=== PATIENT | male | born 1945 | race Caucasian/White ===

== ENCOUNTER → 2017-01-22 | Outpatient (CLI) | payer MEDICARE ==
--- NOTE | 2017-01-22 17:39 | US ---
EXAMINATION TYPE: US kidneys/renal and bladder DATE OF EXAM: 01/22/2017 COMPARISON: Previous study dated 11/24/2014. CLINICAL HISTORY: N18.3 CKD Stage 3. CKD stage 3 EXAM MEASUREMENTS: Right Kidney: 9.3 x 4.2 x 4.3 cm Left Kidney: 9.5 x 4.5 x 4.3 cm Right Kidney: multiple cystic areas throughout with largest measuring 2.4 x 1.4 x 2.0cm, 0.3cm echoge gordy focus mid pole, lobulated contour Left Kidney: multiple cystic areas throughout with largest measuring 1.2cm inferior pole, lobulated c ontour Bladder: wnl Bilateral Jets seen: yes There are multiple cysts present in both kidneys. Some of these parapelvic cysts. There is a septated cyst in the mid polar region of the right kidney. This is unchanged from previous. There is a nonsha dowing, 3.2 mm echogenic focus within the renal pelvis. I'm uncertain as to the etiology of this. It may represent a nonshadowing calculus. There is no evidence of hydronephrosis. IMPRESSION: 1. STABLE APPEARING BILATERAL RENAL CYSTS. 2. PROBABLE NONSHADOWING CALCULUS IN THE MID POLAR REGION OF THE RIGHT KIDNEY.
== END ==
LOC: RADUSWWP 15:25
PROVIDERS: ATTEND Family Medicine
DX: N28.1 Cyst of kidney, acquired (principal); N18.3 Chronic kidney disease, stage 3 (moderate)
CPT/HCPCS: 76770

== ENCOUNTER → 2018-01-21 | Outpatient (CLI) | payer MEDICARE | END | disposition home or self-care (01) | LOC: LABWHC1 10:07 | PROVIDERS: ATTEND Family Medicine | DX: R79.89 Other specified abnormal findings of blood chemistry (principal) | CPT/HCPCS: 36415; 84207 ==

== ENCOUNTER → 2019-04-02 | Outpatient (CLI) | payer MEDICARE ==
--- NOTE | 2019-04-02 14:32 | US ---
EXAMINATION TYPE: US kidneys/renal and bladder DATE OF EXAM: 04/02/2019 COMPARISON: Renal ultrasound dated 01/22/2017 CLINICAL HISTORY: N28.1 REECE RENAL CYSTS. Hx renal cysts EXAM MEASUREMENTS: Right Kidney: 9.2 x 4.5 x 4.1 cm Left Kidney: 9.1 x 4.3 x 4.7 cm Right Kidney: Appears lobular. Renal cysts visualized, largest measured = 1.3 x 1.2 x 0.9 cm, this p reviously measured up to 2.4 cm on the prior of 2016 Left Kidney: Appears lobular. Renal cysts visualized, largest measured= 1.4 x 1.1 x 1.0 cm, this pre viously measured up to 1.2 cm on the prior 2016 Bladder: distended, anechoic Bilateral Jets seen There is no evidence for hydronephrosis at this point in time. No nephrolithiasis is seen. No suspi cious masses are identified. The urinary bladder is anechoic. Bilateral ureteral jets are seen. IMPRESSION: Bilateral benign-appearing renal cysts without internal complexity. No significant interv al growth.
== END | disposition home or self-care (01) ==
LOC: RADUSWWP 13:20
PROVIDERS: ATTEND Internal Medicine Nephrology
DX: N28.1 Cyst of kidney, acquired (principal)
CPT/HCPCS: 76770

== ENCOUNTER → 2021-11-16 | Outpatient (CLI) | payer MEDICARE ==
--- NOTE | 2021-11-17 08:42 | US ---
EXAMINATION TYPE: US kidneys/renal and bladder DATE OF EXAM: 11/16/2021 COMPARISON: US 03/2019 CLINICAL HISTORY: N18.32 CKD STAGE 3. CKD STAGE 3 EXAM MEASUREMENTS: Right Kidney: 9.5 x 5.0 x 3.8 cm Left Kidney: 10.3 x 5.1 x 5.0 cm Right Kidney: LOBULAR, MULTIPLE CYSTS SEEN, LARGEST ADITYA. 2.6 x1.9 x 2.7 cm Left Kidney: LOBULAR, MILD RENAL PELVIC PROMINENCE NOTED, MULTIPLE CYSTS SEEN LARGEST ADITYA. 2.0 x 1.6 x 2.2cm Bladder: wnl Bilateral Jets seen: Yes IMPRESSION: Bilateral cysts. Findings similar to comparison
== END | disposition home or self-care (01) ==
LOC: RADUSWWP 16:05
PROVIDERS: ATTEND Internal Medicine Nephrology
DX: N28.1 Cyst of kidney, acquired (principal)
CPT/HCPCS: 76770

== ENCOUNTER 2022-03-15 10:07 | Day surgery (SDC) | payer MEDICARE ==
[~2022-03-15 10:07] MED LIST: LACTATED RINGERS 1,000 ML IV SCH
[2022-03-15] MEDS ORDERED: SODIUM CHLORIDE 0.9% 1,000 ML IV ONE (11:05)
[2022-03-15 11:11] VITALS: TEMP 97.6
[2022-03-15] MEDS ORDERED: PROPOFOL 10 MG/ML 20 ML VIAL IV ONE (11:49)
--- NOTE | 2022-03-15 12:03 | P.PCN ---
Date of Procedure: 03/15/22 Procedure(s) Performed: BRIEF HISTORY: Patient is a 76-year-old pleasant male scheduled for an elective colonoscopy as a part of screening for colorectal neoplasia. PROCEDURE PERFORMED: Colonoscopy biopsy. PREOPERATIVE DIAGNOSIS: Screening for for colon cancer. IV sedation per Anesthesia. PROCEDURE: After informed consent was obtained, the patient, was brought into the endoscopy unit. IV sedation was administered by Anesthesia under continuous monitoring. Digital rectal examination was normal. Initially the Olympus CF-160 flexible video colonoscope was then inserted in the rectum, gradually advanced into the cecum without any difficulty. Careful examination was performed as the scope was gradually being withdrawn. Ileocecal valve and the appendiceal orifice were visualized and appeared normal. Prep was excellent. Mucosa of the cecum had 2 mm polyp that was removed by cold biopsy. Descending colon there was a 5 limited polyp that was removed by cold biopsy. Rest of the, ascending colon, transverse colon, descending colon, sigmoid colon, and rectum appeared normal. Scattered sigmoid diverticulosis seen. Retroflexion was performed in the rectum and no lesions were seen. The patient tolerated the procedure well. IMPRESSION: 2 mm cecal polyp status post cold biopsy 5 mm ascending colon polyp status post cold biopsy Scattered sigmoid diverticulosis RECOMMENDATIONS: Findings of this examination were discussed with the patient as well as his family. He was advised to follow with the biopsy results. If the biopsy reveals adenoma he can have a repeat colonoscopy in 5 years..
[2022-03-15 12:37] VITALS: BP 139/77; PULSE 68; RESP 20
== END 2022-03-15 12:46 ==
LOC: ORWHC2ENDO 10:07
PROVIDERS: ATTEND Internal Medicine Gastroenterology
DX: Z12.11 Encounter for screening for malignant neoplasm of colon (principal); D12.0 Benign neoplasm of cecum; D12.2 Benign neoplasm of ascending colon; I10 Essential (primary) hypertension; M10.9 Gout, unspecified; N28.9 Disorder of kidney and ureter, unspecified; K57.30 Diverticulosis of large intestine without perforation or abscess without bleeding; Z79.899 Other long term (current) drug therapy
CPT/HCPCS: 88305; 45380; J2704

== ENCOUNTER → 2024-02-06 | Outpatient (CLI) | payer MEDICARE ==
--- NOTE | 2024-02-06 13:34 | US ---
EXAMINATION TYPE: US kidneys/renal and bladder DATE OF EXAM: 02/06/2024 COMPARISON: 11/16/21 CLINICAL INDICATION: Male, 78 years old with history of N18.32 CKD STAGE 3B; CKD EXAM MEASUREMENTS: Right Kidney: 9.9x4.9x4.3 cm Left Kidney: 9.7x4.5x4.9 cm Post Void Residual Volume: 33 mL Right Kidney: largest cyst inf pole: 1.4x1.1x1.4cm Left Kidney: largest cyst mid pole, medial: 2.0x1.4x2.0cm Bladder: wnl Bilateral Jets seen: Yes Normal Post Void Residual: Yes There is no evidence for hydronephrosis at this point in time. No nephrolithiasis is seen. Corticome dullary differentiation is maintained bilaterally. Bilateral cortical thinning identified. Bilateral simple renal cysts identified. No solid masses are identified. The urinary bladder is anechoic. Devin ateral ureteral jets are seen. Prostate gland is identified measuring 3.6 cm in transverse dimension. IMPRESSION: 1. No hydronephrosis or nephrolithiasis. 2. Findings of bilateral chronic medical renal disease. 3. Bilateral simple renal cysts.
== END | disposition home or self-care (01) ==
LOC: RADUSWWP 12:52
PROVIDERS: ATTEND Internal Medicine Nephrology
CPT/HCPCS: 76770

== ENCOUNTER → 2024-12-03 | Outpatient (CLI) | payer MEDICARE ==
--- NOTE | 2024-12-03 13:16 | US ---
EXAMINATION TYPE: US venous doppler duplex LE RT DATE OF EXAM: 12/03/2024 12:30 PM COMPARISON: NONE CLINICAL INDICATION: Male, 79 years old with history of I82.401 ACUTE EMBOLISM AND THOMBOS RLE; No hx of DVT, Pain, swelling TECHNIQUE: The lower extremity deep venous system is examined utilizing real time linear array sonog monico with graded compression, color doppler sonography, and spectral doppler. SIDE PERFORMED: Right FINDINGS: VESSELS IMAGED: Common Femoral Vein Deep Femoral Vein Greater Saphenous Vein * Femoral Vein Popliteal Vein Small Saphenous Vein * Proximal Calf Veins (* superficial vessels) Right Leg: No evidence of DVT. PTVs and peroneal veins were obscured Appropriate arterial and venous spectral waveforms and color Doppler flow. *Complex area seen posterior to the knee: 6.0 x 3.0 x 1.2 cm. IMPRESSION: 1. No evidence for deep vein thrombosis. 2. Calculated cyst posterior to the knee. [facility], , 12/03/2024 1:13 PM
== END | disposition home or self-care (01) ==
LOC: RADUSWWP 11:58
PROVIDERS: ATTEND Orthopaedic Surgery
DX: I82.401 Acute embolism and thrombosis of unspecified deep veins of right lower extremity (principal)